=== PATIENT | male | born 1945 | race Caucasian/White ===

== ENCOUNTER 2017-06-11 13:48 | Emergency (ER) | payer MEDICARE, OTHER ==
[~2017-06-11] VITALS: Ht 185.4 cm; Wt 108.9 kg
[2017-06-11] MEDS ORDERED: HYDROCHLOROTHIA25 M2 PO (14:06)
[2017-06-11] MEDS ORDERED: COZAAR 50 MG TA50 M2 PO (14:06)
[2017-06-11] MEDS ORDERED: BYSTOLIC 5 MG5 M1 PO (14:07)
[2017-06-11 15:12] VITALS: BP 118/82
== END 2017-06-11 15:13 | disposition home or self-care (01) ==
LOC: M.ERS 13:48
DX: S61.210A Laceration without foreign body of right index finger without damage to nail, initial encounter (principal); I10 Essential (primary) hypertension; W23.0XXA Caught, crushed, jammed, or pinched between moving objects, initial encounter; Y93.89 Activity, other specified; Y92.89 Other specified places as the place of occurrence of the external cause; Y99.8 Other external cause status

== ENCOUNTER 2017-06-19 07:05 | Emergency (ER) | payer MEDICARE, OTHER ==
[~2017-06-19] VITALS: Ht 185.4 cm; Wt 108.9 kg
[~2017-06-19 07:05] MED LIST: BYSTOLIC 5 MG5 M1 PO; COZAAR 50 MG TA50 M2 PO; HYDROCHLOROTHIA25 M2 PO
[2017-06-19 07:29] VITALS: BP 151/91
== END 2017-06-19 07:29 | disposition home or self-care (01) ==
LOC: M.ERS 07:05
DX: S61.210D Laceration without foreign body of right index finger without damage to nail, subsequent encounter (principal); I10 Essential (primary) hypertension; X58.XXXD Exposure to other specified factors, subsequent encounter